=== PATIENT | male | born 1965 | race Caucasian/White ===

== ENCOUNTER 2021-09-05 19:56 | Emergency (ER) | payer OTHER | END 2021-09-06 06:00 | disposition home or self-care (01) | LOC: ER1 19:56 | DX: G43.909 Migraine, unspecified, not intractable, without status migrainosus (principal); F17.200 Nicotine dependence, unspecified, uncomplicated; Z88.2 Allergy status to sulfonamides | CPT/HCPCS: 96374; 96375; 99283; J1200; J1885; J2765 ==